=== PATIENT | female | born 1935 | race Two or more races ===

== ENCOUNTER 2018-02-15 19:26 | Emergency (ER) | payer OTHER ==
[~2018-02-15] VITALS: Ht 165.1 cm; Wt 59.9 kg
[~2018-02-15 19:26] MED LIST: LISI10TA6 OR; NOVOLIN SUBCUT; ZOCOR PO
[2018-02-16] MEDS ORDERED: LIDOCAINE 1% HCL (LOCAL ANESTH.) INJ 20ML MDV ONE (02:55)
[2018-02-16] MEDS ORDERED: CLINDAMYCIN HCL 150 MG CAP PO ONE (03:00)
[2018-02-16] MEDS ORDERED: cefTRIAXone SOD 1,000 MG VL IM ONE (03:00)
[2018-02-16 03:47] VITALS: BP 128/68
== END 2018-02-16 04:27 | disposition home or self-care (01) ==
LOC: ER 19:26
DX: L02.31 Cutaneous abscess of buttock (principal); E11.9 Type 2 diabetes mellitus without complications; I10 Essential (primary) hypertension; Z79.899 Other long term (current) drug therapy
CPT/HCPCS: 96372; 99283; J0696; J2001